=== PATIENT | male | born 2005 | race African-American/Black ===

== ENCOUNTER 2024-09-28 01:58 | Emergency (ER) | payer BC ==
[~2024-09-28] VITALS: Ht 188 cm; Wt 108.0 kg
--- NOTE | 2024-09-28 03:26 | Physician Documentation ---
History of Present Illness ~ Chief Complaint: Shortness of Breath Stated Complaint: SHORTNESS OF BREATH Time Seen by MD: 03:18 Mode of Arrival: POV HPI Patient presents to the emergency room for evaluation of shortness of breath. History of pet allergy. He is allergic to cats but normally does not have any problems however he has cleaned in the carpet this evening and then began him from wheezing. No fevers Medication Reconciliation Allergies: Coded Allergies: No Known Allergies (Unverified , 09/28/24) Review of Systems ROS All review of systems negative except as per HPI Physical Exam Vital Signs: Temperature: 98.2, Source: Oral, Heart Rate: 87, Respiratory Rate: 18, BP: 147/79, Pulse Oximetry: 96, Weight: 108.000 Physical Exam General: Patient is awake, alert, oriented x4 in no acute distress Head: Normocephalic and atraumatic. Eyes: Conjunctival normal. EOMI. PERRL. ENT: Mucous membranes moist. Neck: Supple, trachea is midline. Chest: Significant bilateral wheezing present. There is no accessory muscle use or retractions. Cardiac: RRR without murmurs, gallops, or rubs. Progress Results/Orders Results/Orders Orders - GURPREET FUCHS MD Svn Treatment (09/28/24 03:25) Completed Orders - GURPREET FUCHS MD Ipratropium/Albuterol Nebule (Ipratrop/A (09/28/24 03:25) Medications Received in ER Medications (Trade) Dose Ordered Sig/[place] Route PRN Reason Start Time Stop Time Status Last Admin Dose Admin (ipratrop/ albuterol 0.5-3(2.5) MG/3ml nebule) 3 ml ONCE ONCE NEB 09/28/24 03:25 09/28/24 03:26 DC 09/28/24 03:36 3 ML Vital Signs 09/28/24 09/28/24 09/28/24 09/28/24 02:04 03:04 03:12 03:37 Temp 96.8 98.2 Pulse 96 87 88 Resp 15 18 18 48 B/P (MAP) 127/76 147/79 (101) Pulse Ox 96 96 95 O2 Delivery Room Air* O2 Flow Rate 0 FiO2 N/A 09/28/24 03:46 Pulse 88 Resp 18 Pulse Ox 99 O2 Delivery Room Air* O2 Flow Rate 0 FiO2 N/A Medical Decision Making Findings Patient presented to the emergency room with wheezing after cleaning carpet as per HPI. Differentials included asthma, COPD exacerbation, allergic reaction, anaphylaxis. Patient has responded well to breathing treatment and I do feel he is suffering some degree of reactive airway disease secondary to allergic reaction. Patient is feeling well enough to go home. ER precautions discussed. Departure Disposition: HOME / SELF CARE / HOMELESS Impression: Primary Impression: Reactive airway disease Condition: Improved Discharge Instructions: Asthma Attack Referrals: NO PRIMARY CARE PROVIDER (PCP) Prescriptions Albuterol Sulfate (Ventolin Hfa) 90 Mcg Hfa.aer.ad 2 PUFFS INH Q4HPRN PRN for wheezing for 30 Days, #18 GM 0 Refills Prov: GURPREET FUCHS MD 09/28/24 Education Educated: Patient Educated regarding: treatment, need for follow up Signature Scribe Signature: No scribe Attestation: The note accurately reflects work and decisions made by me.Gurpreet Fuchs MD 09/28/24 04:50 GURPREET FUCHS MD September 28, 2024 03:26
[2024-09-28] MEDS: ipratropium/albuterol 3ml nebule NEB ONE (03:36)
[2024-09-28 03:37] VITALS: PULSE 88; RESP 48; O2SAT 95
[2024-09-28 03:46] VITALS: PULSE 88; RESP 18; O2SAT 99
[2024-09-28] MEDS ORDERED: ALBU18HF2 INH (04:49)
[2024-09-28 05:09] VITALS: BP 146/79; PULSE 94; RESP 18; TEMP 98.2; O2SAT 97
== END 2024-09-28 05:11 | disposition home or self-care (01) ==
LOC: ER 02:00
DX: J45.909 Unspecified asthma, uncomplicated (principal)
CPT/HCPCS: 94640; 99283